=== PATIENT | female | born 2000 | race Hispanic/Latino ===

== ENCOUNTER 2023-03-24 17:55 | Emergency (ER) | payer OTHER ==
[~2023-03-24] VITALS: Ht 154.9 cm; Wt 72.6 kg
[2023-03-24 19:25] VITALS: BP 120/75
[2023-03-24] MEDS ORDERED: CYCLOBENZAPRINE HCL 10 MG TABLET PO ONE (20:30)
[2023-03-24] MEDS ORDERED: KETOROLAC 15MG/ML VIAL (15MG/ML) IM ONE (20:30)
[2023-03-24] MEDS ORDERED: LIDOCAINE 5% TOPICAL PATCH TP ONE (20:30)
[2023-03-24 20:42] LABS: APPEARANCE,URINE CLOUDY (CLEAR); BILIRUBIN,URINE NEGATIVE (NEGATIVE); COLOR,URINE YELLOW (YELLOW); GLUCOSE, URINE (UA) NEGATIVE (NEGATIVE); KETONES,URINE NEGATIVE (NEGATIVE); LEUKOCYTE ESTERASE ,URINE 500 Leu/uL (NEGATIVE); NITRATE,URINE 2+ (NEGATIVE); OCCULT BLOOD,URINE NEGATIVE (NEGATIVE); PROTEIN,URINE NEGATIVE (NEGATIVE); UROBILINOGEN,URINE 0.2 mg/dL (0.2-1.0)
[2023-03-24 20:46] LABS: HCG,QUALITATIVE URINE NEGATIVE (NEGATIVE)
[2023-03-24 20:52] LABS: BACTERIA,URINE MOD /HPF (None Seen); MUCUS,URINE RARE LPF (None Seen); SQUAMOUS EPITHELIAL CELL,UR MOD /HPF (0-2)
[2023-03-24] MEDS ORDERED: CEPH500B PO (21:53)
[2023-03-24] MEDS ORDERED: CEFTRIAXONE 1G VIAL IM ONE (22:00)
[2023-03-24] MEDS ORDERED: LIDOCAINE HCL 1% 20 ML VIAL ONE (22:04)
== END 2023-03-24 22:13 | disposition home or self-care (01) ==
LOC: EDH 17:55
DX: N39.0 Urinary tract infection, site not specified (principal)
CPT/HCPCS: 99284; 87077; 87088; 87186; 81001; 81025; 96372 ×2; J0696; J1885